=== PATIENT | female | born 1930 | race Caucasian/White ===

== ENCOUNTER 2017-08-03 05:33 | Observation (INO) | payer MEDICARE, BC ==
[2017-08-03 06:11] LABS: #Basophils 0.1 thou/uL (0.0-0.2); #Eosinphils 0.3 thou/uL (0.0-0.7); #Lymphocytes 1.3 thou/uL (1.20-3.40); #Monocytes 0.6 thou/uL (0.11-0.59); #Neutrophils 7.9 thou/uL (1.40-6.50); %Basophils 0.7 % (0.0-1.0); %Eosinophils 2.7 % (0.0-10.0); %Lymphocytes 13.1 % (21.0-51.0); %Neutrophils 77.5 % (42.0-75.0); Hemoglobin 12.9 g/dL (12.0-16.0); Mean Corpuscular HGB CONC 32.1 g/dL (32.0-36.0); Mean Corpuscular Hemoglobin 30.9 pg (27.0-31.0); Mean Corpuscular Volume 96.2 fl (81.0-99.0); Mean Platelet Volume 7.6 fL (7.4-10.4); Platelet Count 223 thou/uL (130-400); Red Blood Cell (RBC) Count 4.18 mill/uL (4.20-5.40); White Blood Cell (WBC) Count 10.2 thou/uL (4.8-10.8)
[2017-08-03 06:15] LABS: INR-International Normal Ratio 1.3; PTT 32.4 SEC (22.9-36.1)
[2017-08-03 06:21] LABS: ALT (SGPT) 22 U/L (8-55); AST (SGOT) 22 U/L (5-34); Albumin 3.8 g/dL (3.4-4.8); Alkaline Phosphatase 76 U/L (40-150); Anion Gap 16 mmol/L (10-20); BUN (Urea Nitrogen) 24 mg/dL (9.8-20.1); Bilirubin, Total 0.6 mg/dL (0.2-1.2); Calc. Creatinine Clearance 0 mL/min (70-130); Calcium 10.9 mg/dL (7.8-10.44); Carbon Dioxide 28 mmol/L (23-31); Chloride 98 mmol/L (98-107); Estimated GFR-MDRD 41; Globulin 2.7 g/dL (2.4-3.5); Glucose 147 mg/dL (83-110); Potassium 3.6 mmol/L (3.5-5.1); Protein, Total 6.5 g/dL (6.0-8.3); Sodium 138 mmol/L (136-145)
[2017-08-03 06:26] LABS: CKMB 0.5 ng/mL (0-6.6); Troponin I 0.016 ng/mL (< 0.028)
[2017-08-03 06:42] LABS: Clarity Cloudy (Clear)
[2017-08-03 06:44] LABS: Leukocyte Large (Negative); Nitrite Negative (Negative); Protein, Urine (Dipstick) Trace mg/dL (Neg-Trace); pH, Urine 7.5 (5.0-9.0)
[2017-08-03 06:45] LABS: Bilirubin Negative (Negative); Glucose, Urine (Dipstick) Negative (Negative); Urobilinogen 0.2 mg/dL (0.2-1.0)
[2017-08-03 06:46] LABS: Blood, Urine Large (Negative)
[2017-08-03 06:51] LABS: RBC/HPF GREATER THAN 50-TNTC HPF (0-3)
[2017-08-03 06:52] LABS: Bacteria/HPF 1+ HPF (None Seen); Hyaline Casts/LPF NONE SEEN LPF (0-3 Hyaline); Squamous Epithelial 0-3 HPF (0-3)
--- NOTE | 2017-08-03 07:40 | RAD ---
SINGLE VIEW OF THE CHEST: COMPARISON: None. HISTORY: Fall. Found on floor with hematoma in the left orbit. Pain in the left ribs. FINDINGS: A single view of the chest shows a normal-size cardiomediastinal silhouette. Atherosclerotic calcifi cations are seen in the aorta. There is no evidence of consolidation, mass, or pleural effusion. Th e bones are unremarkable. IMPRESSION: 1. No evidence of acute cardiopulmonary disease. 2. Atherosclerotic disease. POS: OFF
--- NOTE | 2017-08-03 07:42 | CT ---
PRELIMINARY REPORT/[facility]/EMERGENCY AFTER HOURS PROCEDURE: EXAM: CT Cervical Spine Without Intravenous Contrast CLINICAL HISTORY: 86 years old, female; Injury or trauma; Fall; Initial encounter; Blunt trauma (contusions or hematoma s); Consciousness not specified; Patient HX: S/P fall TECHNIQUE: Axial computed tomography images of the cervical spine without intravenous contrast. COMPARISON: No relevant prior studies available. FINDINGS: Vertebrae: Loss of vertebral body height, presumed degenerative . No acute fracture. Discs/spinal canal/neural foramina: No acute findings. No spinal canal stenosis. Soft tissues: Unremarkable. Lung apices: Unremarkable as visualized. IMPRESSION: No definite acute cervical fracture detected Thank you for allowing us to participate in the care of your patient. Dictated and Authenticated by: Dc Espinosa MD 08/03/2017 6:24 AM Central Time ([place] & [place]) FINAL REPORT CT CERVICAL SPINE WITHOUT CONTRAST: HISTORY: Emergency exam. Trauma. COMPARISON: None. FINDINGS: There is flattening of the mandibular condyles, chronic. The occipital condyles are intact. Odontoi d process is intact. There is moderate facet arthrosis bilaterally of the cervical spine. No acute fracture or malalignme nt. Hypodensity of the right lobe of the thyroid with calcifications. Lung apices are clear. IMPRESSION: No acute fracture or malalignment. POS: [facility]
--- NOTE | 2017-08-03 07:44 | RAD ---
TWO VIEWS LEFT HIP: COMPARISON: None. HISTORY: Fall and found on floor. Left hip pain. FINDINGS: Two views of the left hip show no evidence of acute fracture or dislocation. Mild degenerative turner e is seen in the left hip. Mild soft tissue swelling is seen. IMPRESSION: No evidence of acute osseous abnormality. POS: OFF
--- NOTE | 2017-08-03 07:50 | RAD ---
SINGLE VIEW OF THE PELVIS: HISTORY: Fall with left hip pain. FINDINGS: A single view of the pelvis shows no evidence of acute fracture or dislocation. Postsurgical changes are seen in the lumbar spine. Mild degenerative changes are seen in both hips. IMPRESSION: No evidence of acute osseous abnormality. POS: OFF
--- NOTE | 2017-08-03 07:59 | CT ---
PRELIMINARY REPORT/[facility]/EMERGENCY AFTER HOURS PROCEDURE: EXAM: CT Head Without Intravenous Contrast CLINICAL HISTORY: 86 years old, female; Injury or trauma; Fall; Initial encounter; Blunt trauma (contusions or hematoma s); Consciousness not specified; Patient HX: S/P fall TECHNIQUE: Axial computed tomography images of the head/brain without intravenous contrast. COMPARISON: No relevant prior studies available. FINDINGS: Brain:Moderate volume loss No hemorrhageModerate white matter disease.No edema. Ventricles: Unremarkable. No ventriculomegaly. Bones/joints: Unremarkable. No acute fracture. Soft tissues: Large left frontal scalp hematoma Sinuses: Unremarkable as visualized. No acute sinusitis. Mastoid air cells: Unremarkable as visualized. No mastoid effusion. IMPRESSION: No definite acute intracranial hemorrhage Thank you for allowing us to participate in the care of your patient. Dictated and Authenticated by: Dc Espinosa MD 08/03/2017 6:24 AM Central Time ([place] & [place]) FINAL REPORT CT BRAIN: HISTORY: Trauma, fall. COMPARISON: None. FINDINGS: There is a left frontal superficial soft tissue contusion and hematoma. Moderate to severe microhema ngiopathic changes. No acute intracranial hemorrhage. No large territorial infarct. No midline stepan ft or mass effect. Moderate atrophy. Calvarium is intact. Paranasal sinuses and mastoids are relatively clear. IMPRESSION: Large left frontal periorbital and forehead hematoma soft tissue contusion. No acute underlying post traumatic sequelae. CODE: QA POS: [facility]
--- NOTE | 2017-08-03 08:26 | RAD ---
RADIOGRAPH RIGHT WRIST THREE VIEWS: Date: 08-03-17 Time: 8:15 a.m. History: 86-year-old female status post acute left wrist trauma from fall. Left wrist hematoma. Comparison: None. FINDINGS: There is diffuse, severe osteopenia. No acute fracture is identified. If there is snuff box tendernes s that suggests an occult scaphoid fracture, then the general recommendation is immobilization and fo llow up imaging in 5-10 days. There is ulna plus. There is soft tissue swelling at the radial and vol ar sides of the wrist. There is moderate DJD at the first MCP. There is mild to moderate DJD at the f irst CMC and at the STT complex. There is no dislocation. IMPRESSION: 1. No acute fracture identified. 2. Ulnar positive variance. 3. 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 4. Acute, traumatic soft tissue contusion of the wrist. POS: [facility]
[2017-08-03] MEDS ORDERED: cefTRIAXone\\ROCEPHIN 2 GM, Admixture Fee 1 EACH in Sodium Chloride 0.9% 100 ML IVPB SCH (09:00)
[2017-08-03] MEDS ORDERED: Acetaminophen 325 MG TAB ONE (09:19)
[2017-08-03] MEDS ORDERED: Vancomycin HCl 1.25 GM in Sodium Chloride 0.9% 250 ML 250 ML IVPB SCH (10:00)
[2017-08-03 11:14] LABS: Lactic Acid 1.5 mmol/L (0.5-2.2)
[2017-08-03] MEDS ORDERED: Ondansetron ODT 4 MG TAB SL PRN (11:23)
[2017-08-03] MEDS ORDERED: Ondansetron HCl/PF 4 MG/2 ML Vial IVP PRN (11:23)
[2017-08-03] MEDS ORDERED: Sodium Chloride 0.9% 1,000 ML IV SCH (11:23)
[2017-08-03 11:29] VITALS: BMI 29.9
[2017-08-03] MEDS ORDERED: Bisacodyl 5 MG TAB PO PRN (12:26)
[2017-08-03] MEDS ORDERED: Acetaminophen/Codeine 30-300mg Tablet PO PRN (12:29)
[2017-08-03] MEDS ORDERED: Gentamicin 80 MG/2 ML VIAL IVPB SCH (12:45)
[2017-08-03] MEDS ORDERED: fentaNYL 50 mcg/hour Patch TD SCH (13:00)
--- NOTE | 2017-08-03 13:16 | HP ---
ATTENDING PHYSICIAN: Angel Ann M.D. DATE OF ADMISSION: 08/03/2017 CHIEF COMPLAINT: Fall. HISTORY OF PRESENT ILLNESS: This is an 86-year-old elderly white female, morbidly obese. She has a known history of DVT. Three weeks ago she was admitted for a deep venous thrombus in the right lower extremity and was started on Eliquis. The patient also has a history of chronic urinary retention a nd is on a urinary bladder indwelling catheter started by her urologist, Dr. Rodríguez. The patient is i n a senior care, skilled facility getting rehab. The patient woke up in the night and she happened to walk towards the bathroom and when she was returning she called for help and as nobody was coming the patient apparently tripped and she fell and hitting her head to the bed. The patient had a prett y severe swelling on her left forehead and the periorbital area of the left eye, which was almost com pletely closed. She had a CT of the head in the ER that was negative for any intracranial bleed, but has a massive hematoma on the left forehead and periorbital edema. The patient was also noted to [facility] a urinary tract infection which most likely could be secondary to a colonizer, but because the pat ient had a UA positive markedly for urinary tract infection she has been admitted and started on IV a ntibiotics. The patient was seen on the floor. She was alert and oriented and her son was at the [facility]. The patient denies having any chest pain, no nausea, no vomiting, no diarrhea, no constipatio n. She is alert and oriented and able to answer all the questions. She denies having any headache a t this time and denies having any vision problems. PAST MEDICAL HISTORY: 1. History of urinary retention. 2. History of deep venous thrombosis. PAST SURGICAL HISTORY: 1. Hysterectomy. 2. Back surgeries in the past. SOCIAL HISTORY: The patient is a nonsmoker. No history of alcohol, no history of illicit drug use. FAMILY HISTORY: No significant family history of coronary artery disease. REVIEW OF SYSTEMS: All 12 systems are reviewed with the patient thoroughly and found to be negative at this time. Symptoms reviewed, HEENT, CV, STEAM TABLE ASSOCIATE, respiratory, GI, , musculoskeletal, skin and inte gumentary. Constitutional: Weight loss or gain, ability to conduct usual activities. Skin: Rash, itching. Eyes: Double vision, pain. ENT/Mouth: Nose bleeding, neck stiffness, pain, tenderness. Cardiovascular: Palpitations, dyspnea on exertion, orthopnea. Respiratory: Shortness of breath, wheezing, cough, hemoptysis, fever or night sweats. Gastrointestinal: Poor appetite, abdominal pain, heartburn, nausea, vomiting, constipation, or diarrhea. Genitourinary: Urgency, frequency, dysuria, nocturia. Musculoskeletal: Pain, swelling. Neurologic/Psychiatric: Anxiety, depression. Allergy/Immunologic: Skin rash, bleeding tendency. HOME MEDICATIONS: 1. Amitriptyline 25 mg at bedtime. 2. Eliquis 5 mg p.o. b.i.d. 3. Aspirin 81 mg p.o. daily. 4. Atorvastatin 10 mg Tuesday, Tuesday, and Tuesday. 5. Cetirizine. 6. Cipro 250 mg p.o. daily. 7. Docusate sodium 100 mg p.o. b.i.d. 8. Escitalopram 20 mg p.o. daily. 9. Fentanyl at 50 mcg every 3 days. 10. Metoprolol 25 mg p.o. daily. 11. Nystatin 1 application topical b.i.d. ALLERGIES: ACETAMINOPHEN, HYDROCODONE, PENICILLIN, and SULFA. PHYSICAL EXAMINATION: VITAL SIGNS: Blood pressures are 140/87, heart rate is 100, respiratory rate 18, saturation 93%, GENERAL: The patient is moderately built and moderately nourished, does not appear to be in acute di stress at this time. HEENT: The patient has trauma to the left forehead with the bruising noted with 5-10 cm bruising and complete periorbital edema. Extraocular movements are intact. PERRLA. LABORATORY DATA: WBC 10.2, hemoglobin is 12.9, hematocrit is 40.2, platelets are 223. Sodium 130, potassium 3.6, chloride 98, bicarbonate is 28, BUN is 24, creatinine 1.23. ASSESSMENT AND PLAN: 1. Acute urinary tract infection secondary to indwelling catheter. 2. Acute kidney injury with a creatinine of 1.23. 3. History of deep venous thrombosis on anticoagulation. 4. Moderate dehydration. 5. Morbid obesity. 6. History of urinary retention. PLAN: 1. The plan is to continue the patient on IV antibiotics, which was started in the ER. The patient was started on gentamicin and vancomycin. At this time, we will discontinue the vancomycin and will continue with the gentamicin with the pharmacy managing the trough levels. 2. The patient looks pretty dehydrated. We will continue with hydration at 75 an hour and closely m onitor her urine output. 3. The patient has elevated creatinine and elevated BUN, signs suggestive of dehydration. We will c ontinue with the above management, IV fluids and we will avoid nephrotoxic medications. 4. The patient has indwelling catheter started by her urologist. At this time, we will continue wit h the catheter. 5. We will continue with PT and OT evaluation. 6. Plan to discharge the patient tomorrow if she is stable. The patient would not need more than 2 nights in this hospital, but if the patient's condition does not improve and is progressively weaker, we will continue with this hospitalization for more than 2 midnights at the time. 7. DVT prophylaxis is SCDs. We will hold Eliquis at this time because of the risk of bleeding. I spent 70 minutes with this patient.
[2017-08-03] MEDS: Sodium Chloride 0.9% 1,000 ML IV SCH (13:53)
[2017-08-03] MEDS: Acetaminophen 325 MG TAB PO PRN (18:42)
[2017-08-03] MEDS: Nystatin Powder 15 GM BOT TOP SCH (21:10)
[2017-08-03] MEDS: Melatonin 3 MG TAB PO SCH (21:11)
[2017-08-03] MEDS: Famotidine/PF 20 mg/2ml Vial SLOW IVP SCH (21:11)
[2017-08-03] MEDS: Docusate 100 MG CAP PO SCH (21:11)
[2017-08-03] MEDS: Gabapentin 300 MG CAP PO SCH (21:11)
[2017-08-03] MEDS: Amitriptyline HCl 25 MG TAB PO SCH (21:11)
[2017-08-04] MEDS: Sodium Chloride 0.9% 1,000 ML IV SCH ×2 (03:15→16:25)
[2017-08-04 05:40] LABS: #Eosinphils 0.1 thou/uL (0.0-0.7); #Lymphocytes 1.3 thou/uL (1.20-3.40); #Monocytes 0.7 thou/uL (0.11-0.59); #Neutrophils 4.4 thou/uL (1.40-6.50); %Basophils 0.2 % (0.0-1.0); %Eosinophils 1.4 % (0.0-10.0); %Lymphocytes 20.2 % (21.0-51.0); %Monocytes 10.2 % (0.0-10.0); Hemoglobin 10.9 g/dL (12.0-16.0); Mean Corpuscular HGB CONC 33.5 g/dL (32.0-36.0); Mean Corpuscular Hemoglobin 32.4 pg (27.0-31.0); Mean Corpuscular Volume 96.5 fl (81.0-99.0); Mean Platelet Volume 7.9 fL (7.4-10.4); Platelet Count 177 thou/uL (130-400); Red Blood Cell (RBC) Count 3.36 mill/uL (4.20-5.40); White Blood Cell (WBC) Count 6.5 thou/uL (4.8-10.8)
[2017-08-04 05:52] LABS: Anion Gap 14 mmol/L (10-20); BUN (Urea Nitrogen) 21 mg/dL (9.8-20.1); Calc. Creatinine Clearance 62 mL/min (70-130); Calcium 9.2 mg/dL (7.8-10.44); Carbon Dioxide 29 mmol/L (23-31); Chloride 100 mmol/L (98-107); Estimated GFR-MDRD 56; Glucose 96 mg/dL (83-110); Potassium 3.5 mmol/L (3.5-5.1); Sodium 139 mmol/L (136-145)
[2017-08-04] MEDS ORDERED: KRILL OIL 500 MG PO SCH (09:00)
[2017-08-04] MEDS: Multivitamin W/ Minerals 1 TAB PO SCH (10:20)
[2017-08-04] MEDS: Nystatin Powder 15 GM BOT TOP SCH ×2 (10:21→20:48)
[2017-08-04] MEDS: Docusate 100 MG CAP PO SCH ×2 (10:21→20:48)
[2017-08-04] MEDS: Loratadine 10 MG TAB PO SCH (10:21)
[2017-08-04] MEDS: Escitalopram Oxalate 20 mg Tablet PO SCH (10:21)
[2017-08-04] MEDS: Acetaminophen 325 MG TAB PO PRN ×2 (10:21→20:48)
--- NOTE | 2017-08-04 11:42 | PDOC.PN ---
- Subjective Encounter Start Date: 08/04/17 Encounter Start Time: 10:30 Patient is Completley altered unable to Answer any questions, Discussed with SOn on phone, He said she is been altered like this for 1-2 weeks. - Objective Resuscitation Status: Resuscitation Status FULL:Full Resuscitation MAR Reviewed: Yes Vital Signs & Weight: Vital Signs (12 hours) Temp Pulse Resp BP Pulse Ox 08/04/17 08:00 100.2 F H 89 20 115/89 96 08/04/17 06:33 98.4 F 85 18 116/75 93 L 08/04/17 00:00 99.7 F H 88 20 133/82 92 L Weight Weight 202 lb 13.204 oz I&O: 08/03/17 08/04/17 08/05/17 06:59 06:59 06:59 Intake Total 1400 Output Total 1600 Balance -200 Result Diagrams: 08/04/17 04:33 08/04/17 04:33 Additional Labs: Accuchecks 08/04/17 08/03/17 08/03/17 04:09 21:02 16:59 POC Glucose 109 129 H 102 Radiology Reviewed by me: Yes Dx/Plan (1) Acute metabolic encephalopathy Code(s): G93.41 - METABOLIC ENCEPHALOPATHY Status: Acute Comment: Likely from UTI, will closley Monitor CT head was negative, Will continue to monitor, likely Drug resistant UTI, waiting on Cultures. (2) UTI (urinary tract infection) due to urinary indwelling catheter Code(s): T83.511A - I/I REACT D/T INDWELLING URETHRAL CATHETER, INIT; N39.0 - URINARY TRACT INFECTION, SITE NOT SPECIFIED Status: Acute Qualifiers: Indwelling urinary catheter type: indwelling urethral catheter Comment: Patient is on gentamycin dosed by pharmacy, reid continue to Monitor. (3) Severe dehydration Code(s): E86.0 - DEHYDRATION Status: Acute Comment: Will cotninue with IV fluids. Monitor urine Output. (4) CYRUS (acute kidney injury) Code(s): N17.9 - ACUTE KIDNEY FAILURE, UNSPECIFIED Status: Acute Comment: Improving renal fucntions, Continue fluids, as patient is not taking any oral hydration. (5) DVT (deep venous thrombosis) Code(s): I82.409 - ACUTE EMBOLISM AND THOMBOS UNSP DEEP VN UNSP LOWER EXTREMITY Status: Acute Comment: Will restart pt on Eliquis tomorrow. - Plan cont current plan of care, plan discussed w/ family, continue antibiotics, PT/OT , respiratory therapy, incentive spirometry, out of bed/ambulate, DVT proph w/ SCDs * . - Discharge Day Encounter end time: 11:00 Review of Systems - Review of Systems Other: Unable to get any ROS as patient is altered. - Medications/Allergies Allergies/Adverse Reactions: Allergies Allergy/AdvReac Type Severity Reaction Status Date / Time acetaminophen [From Vicodin] Allergy Verified 08/03/17 11:49 hydrocodone [From Vicodin] Allergy Verified 08/03/17 08:50 Penicillins Allergy Verified 08/03/17 08:50 Sulfa (Sulfonamide Allergy Verified 08/03/17 08:50 Antibiotics) Medications: Current Medications Acetaminophen (Tylenol) 650 mg PO Q4H PRN PRN Reason: Headache/Fever or Pain Last Admin: 08/04/17 10:21 Dose: 650 mg Acetaminophen/Codeine Phosphate (Tylenol #3) 1 tab PO Q6HR PRN PRN Reason: Pain Last Admin: 08/03/17 14:24 Dose: 1 tab Amitriptyline HCl (Elavil) 25 mg PO [facility] Last Admin: 08/03/17 21:11 Dose: 25 mg Atorvastatin Calcium (Lipitor) 10 mg PO MoWeFr@0900 [facility] Bisacodyl (Dulcolax) 10 mg PO DAILYPRN PRN PRN Reason: Constipation Cholecalciferol (Vitamin D3) 1,500 units PO DAILY [facility] Last Admin: 08/04/17 10:20 Dose: 1,500 units Docusate Sodium (Colace) 100 mg PO BID [facility] Last Admin: 08/04/17 10:21 Dose: 100 mg Escitalopram Oxalate (Lexapro) 20 mg PO DAILY [facility] Last Admin: 08/04/17 10:21 Dose: 20 mg Famotidine (Pepcid) 20 mg SLOW IVP 2100 [facility] Last Admin: 08/03/17 21:11 Dose: 20 mg Fentanyl (Duragesic) 50 mcg TD Q3DAYS@1300 [facility] Last Admin: 08/03/17 13:43 Dose: 50 mcg Gabapentin (Neurontin) 600 mg PO [facility] Last Admin: 08/03/17 21:11 Dose: 600 mg Sodium Chloride (Normal Saline 0.9%) 1,000 mls @ 75 mls/hr IV .[id number] [facility] Last Admin: 08/04/17 03:15 Dose: 1,000 mls Gentamicin Sulfate 380 mg/ (Sodium Chloride) 109.5 mls @ 219 mls/hr IVPB Q48H [facility] Iron/Minerals/Multivitamins (Theragran M) 1 tab PO DAILY [facility] Last Admin: 08/04/17 10:20 Dose: 1 tab Loratadine (Claritin) 10 mg PO DAILY [facility] Last Admin: 08/04/17 10:21 Dose: 10 mg Melatonin (Melatonin) 6 mg PO HS [facility] Last Admin: 08/03/17 21:11 Dose: 6 mg Metoprolol Succinate (Toprol Xl) 25 mg PO DAILY [facility] Last Admin: 08/04/17 10:20 Dose: 25 mg Miscellaneous Medication (Pharmacy To Dose) 0 each IVPB PRN PRN PRN Reason: GENTAMICIN Pharmacy to Dose Nystatin (Mycostatin Powder) 0 gm TOP BID [facility] Last Admin: 08/04/17 10:21 Dose: 1 applic
[2017-08-04] MEDS ORDERED: Albuterol Sulfate 2.5 mg/3 ml Neb NEB PRN (16:01)
[2017-08-04] MEDS: Gabapentin 300 MG CAP PO SCH (20:47)
[2017-08-04] MEDS: Amitriptyline HCl 25 MG TAB PO SCH (20:47)
[2017-08-04] MEDS: Melatonin 3 MG TAB PO SCH (20:48)
[2017-08-04] MEDS: Famotidine/PF 20 mg/2ml Vial SLOW IVP SCH (20:48)
[2017-08-05 05:14] LABS: #Basophils 0.1 thou/uL (0.0-0.2); #Eosinphils 0.2 thou/uL (0.0-0.7); #Lymphocytes 2.8 thou/uL (1.20-3.40); #Monocytes 0.8 thou/uL (0.11-0.59); #Neutrophils 2.7 thou/uL (1.40-6.50); %Eosinophils 2.6 % (0.0-10.0); %Lymphocytes 43.5 % (21.0-51.0); %Monocytes 11.8 % (0.0-10.0); Mean Corpuscular HGB CONC 32.1 g/dL (32.0-36.0); Mean Corpuscular Hemoglobin 31.5 pg (27.0-31.0); Mean Corpuscular Volume 98.1 fl (81.0-99.0); Mean Platelet Volume 7.5 fL (7.4-10.4); Platelet Count 186 thou/uL (130-400); White Blood Cell (WBC) Count 6.5 thou/uL (4.8-10.8)
[2017-08-05 05:28] LABS: Anion Gap 10 mmol/L (10-20); BUN (Urea Nitrogen) 24 mg/dL (9.8-20.1); Calc. Creatinine Clearance 57 mL/min (70-130); Calcium 8.8 mg/dL (7.8-10.44); Carbon Dioxide 31 mmol/L (23-31); Chloride 101 mmol/L (98-107); Estimated GFR-MDRD 51; Glucose 72 mg/dL (83-110); Potassium 3.2 mmol/L (3.5-5.1); Sodium 139 mmol/L (136-145)
[2017-08-05] MEDS: Sodium Chloride 0.9% 1,000 ML IV SCH ×2 (05:55→15:53)
[2017-08-05] MEDS: Multivitamin W/ Minerals 1 TAB PO SCH (08:40)
[2017-08-05] MEDS: Loratadine 10 MG TAB PO SCH (08:41)
[2017-08-05] MEDS: Docusate 100 MG CAP PO SCH (08:41)
[2017-08-05] MEDS: Escitalopram Oxalate 20 mg Tablet PO SCH (08:42)
[2017-08-05] MEDS: Nystatin Powder 15 GM BOT TOP SCH (08:42)
[2017-08-05] MEDS ORDERED: Atorvastatin Calcium 10 MG TAB PO SCH (09:00)
[2017-08-05] MEDS ORDERED: Gentamicin Sulfate 380 MG in Sodium Chloride 0.9% 100 ML IVPB SCH (10:00)
--- NOTE | 2017-08-05 14:00 | DIS ---
DATE OF ADMISSION: 08/03/2017 DATE OF DISCHARGE: 08/05/2017 ADMITTING DIAGNOSIS: Acute urinary tract infection with indwelling catheter. DISCHARGE DIAGNOSIS: Acute infection with indwelling catheter. SECONDARY DIAGNOSES: 1. Acute metabolic encephalopathy. 2. History of head trauma with no intracranial hemorrhage. 3. Moderate dehydration. 4. Morbid obesity. 5. History of urinary retention. HISTORY OF PRESENT ILLNESS AND HOSPITAL COURSE: In brief, this 86-year-old white female, morbidly ob ari. [facility] with a history of D[facility] and was started on Eliquis. 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 The jean paul roy lives in a [facility]. She happened to fall and hit her head with a hematoma formed on the l eft forehead and left periorbital edema with no any intracranial bleed. The patient was closely annmarie tored as she became severely disoriented and the UA was being positive. Urine culture was sent and t here was no growth for 48 hours and the patient was ready and safe for discharge. The patient was mo nitored for 2 days and following that day, she was more alert and oriented and her mental status was back to baseline. The patient was [facility] to [facility] and advised to continue on the Dayana val and closely monitor and do fall precautions. PHYSICAL EXAMINATION: On date of discharge, VITAL SIGNS: Blood pressures are 152/79, heart rate is 73, respiration is 18, saturation 98%. GENERAL: The patient is moderately built and moderately nourished, does not appear to be in acute di stress at this time. She is alert and oriented x3. HEENT: Atraumatic, normocephalic. PERRLA. Extraocular muscles were intact. Oral mucosa pink and m oist. CARDIOVASCULAR: S1, S2 normal. No murmurs, rubs or gallops. LUNGS: Bilateral entry was equal. No wheezing, no crackles. ABDOMEN: Soft, nontender, no guarding, no rebound tenderness. Bowel sounds normal. DISCHARGE MEDICATIONS: 1. Amitriptyline 25 mg at bedtime. 2. Eliquis 5 mg p.o. b.i.d. 3. Aspirin 81 mg daily. 4. Atorvastatin 10 mg Tuesday, Tuesday, and Tuesday. 5. Cetirizine. 6. Cipro 250 mg daily. 7. Docusate. 8. Lexapro 20 mg daily. 9. Fentanyl 50 mcg q.72 h. 10. Gabapentin 600 mg at bedtime. 11. Melatonin. 12. Krill oil. 13. Metoprolol 25 mg daily. 14. Nystatin 1 application topical b.i.d. DISCHARGE INSTRUCTIONS: Continue activity as tolerated. Advised to follow up with primary care phys ician. Advised to closely monitor for any frequent falls. The patient is having frequent falls. Ne ed to discontinue the Eliquis and will leave this to primary care physician to decide on this. I spent 35 minutes with this patient on the day of discharge.
[2017-08-05 16:19] VITALS: BP 129/71; TEMP 98.3
[2017-08-05] MEDS ORDERED: Famotidine 20 MG TAB PO SCH (21:00)
== END 2017-08-05 16:25 ==
LOC: ERS 05:33 → T4-A 09:53
PROVIDERS: ADMIT Family Medicine; ATTEND Family Medicine
DX: S00.83XA Contusion of other part of head, initial encounter (principal); T83.511A Infection and inflammatory reaction due to indwelling urethral catheter, initial encounter; N39.0 Urinary tract infection, site not specified; G93.41 Metabolic encephalopathy; E86.0 Dehydration; R33.9 Retention of urine, unspecified; E66.01 Morbid (severe) obesity due to excess calories; Z68.30 Body mass index [BMI] 30.0-30.9, adult; Z88.5 Allergy status to narcotic agent; Z88.0 Allergy status to penicillin; Z88.2 Allergy status to sulfonamides; Z88.8 Allergy status to other drugs, medicaments and biological substances; Z79.01 Long term (current) use of anticoagulants; Z79.899 Other long term (current) drug therapy; Z90.710 Acquired absence of both cervix and uterus; Z98.890 Other specified postprocedural states; W01.0XXA Fall on same level from slipping, tripping and stumbling without subsequent striking against object, initial encounter
CPT/HCPCS: 70450; 71045; 72125; 72170; 73110; 73502; 80048 ×2; 80053; 80170; 82553; 82962 ×2; 83605; 84484; 85025 ×3; 85610; 85730; 87040; 87086; 93005; 94760; 96361 ×3; 96365; 96366; 96367; 96375 ×2; 96376; 97110; 97139 ×3; 97530 ×2; 99285; G0378 ×2; G8978; G8979; G8987; G8988; 36415; 36416; 81003; 81015; J0696; J1580; J2405; J3370; J7050; S0028